=== PATIENT | female | born 1985 | race Caucasian/White ===

== ENCOUNTER 2017-08-25 11:14 | Emergency (ER) | payer MEDICAID ==
[2017-08-25 11:42] VITALS: BP 124/65
[2017-08-25 12:21] LABS: HCG UR QUAL NEGATIVE
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
--- NOTE | 2017-08-25 13:47 | XRAY Report ---
EXAM: RIGHT ELBOW RADIOGRAPHY EXAM DATE: 08/25/2017 01:05 PM. CLINICAL HISTORY: Right elbow injury. COMPARISON: None. TECHNIQUE: 3 views. FINDINGS: Bones: Normal. No fractures or bone lesions. Joints: Normal. No effusion. No subluxation. Soft Tissues: Normal. No soft tissue swelling. IMPRESSION: Normal elbow radiography. [facility] Referring Provider Line: [phone] SITE ID: [id number]
== END 2017-08-25 13:34 | disposition home or self-care (01) ==
LOC: ED 11:14
DX: S50.01XA Contusion of right elbow, initial encounter (principal); W22.8XXA Striking against or struck by other objects, initial encounter; Y93.83 Activity, rough housing and horseplay
CPT/HCPCS: 81025; 99283

== ENCOUNTER 2018-02-07 18:45 | Emergency (ER) | payer MEDICAID ==
[2018-02-07 19:46] LABS: HCG UR QUAL NEGATIVE
--- NOTE | 2018-02-07 20:47 | XRAY Report ---
Reason: injury- slammed on a wood Procedure Date: 02/07/2018 Accession Number: [id number] / [id number] Procedure: XR - Wrist 3 View RT CPT Code: FULL RESULT: EXAM: RIGHT WRIST RADIOGRAPHY EXAM DATE: 02/07/2018 08:23 PM. CLINICAL HISTORY: Injury 3 days ago. Lateral wrist pain and swelling. COMPARISON: None. TECHNIQUE: 3 views. FINDINGS: Bones: Normal. No fractures or bone lesions. Joints: Normal. No subluxations. Soft Tissues: Normal. No soft tissue swelling. IMPRESSION: Normal wrist radiography. [facility]
--- NOTE | 2018-02-07 20:57 | ED Physician Documentation ---
PD HPI UPPER EXT INJURY - Stated complaint Stated Complaint: WRIST PX - Chief complaint Chief Complaint: Trauma Ext - History obtained from History obtained from: Patient - History of Present Illness Location: Right, Wrist Type of injury: Blunt / blow Where injury occurred: Home Timing - onset: Yesterday Timing - details: Abrupt onset, Still present Improved by: Immobilization Worsened by: Moving, Palpating Associated symptoms: Discolored Similar symptoms before: Has not had sx before Recently seen: Not recently seen - Additonal information Additional information: Patient is a 32 year old female presenting to the emergency department for right wrist pain. patient was cleaning out of the house of her grandmother a few days ago and hit her wrist when she was carrying something heavy. patient states that she repeatedly hit and now she had some tingling in her right hand. Patient denies any other trauma. 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, Other HEENT: Tonsil/Adenoidectomy - Present Medications Home Medications: Ambulatory Orders Medication Instructions Recorded Confirmed HYDROcod/ACETAM 5/325 [[place] 5/325] 1 - 2 ea PO Q6H PRN #10 tablet 08/25/17 - Allergies Allergies/Adverse Reactions: Allergies Allergy/AdvReac Type Severity Reaction Status Date / Time Penicillins Allergy Unknown Verified 08/25/17 11:42 - Social History Does the pt smoke?: Yes Smoking Status: Current every day smoker Does the pt drink ETOH?: Yes Does the pt have substance abuse?: No - Immunizations Immunizations are current?: Yes - POLST Patient has POLST: No PD ED PE NORMAL - Vitals Vital signs reviewed: Yes - General General: Alert and oriented X 3 - HEENT HEENT: Atraumatic - Cardiac Cardiac: RRR - Respiratory Respiratory: No respiratory distress - Abdomen Abdomen: Soft PD ED PE EXPANDED - Derm Derm: Bruising (right wrist) - Extremities Extremities: Right wrist (contusion to right medial wrist) Results - Vitals Vitals: Vital Signs - 24 hr 02/07/18 18:57 Temperature 36.4 C L Heart Rate 73 Respiratory 16 Rate Blood Pressure 116/65 O2 Saturation 98 Oxygen O2 Source Room air - Labs Labs: Laboratory Tests 02/07/18 19:35 Ur Specific [place] >=1.030 H Urine HCG, Qual NEGATIVE - Rads (name of study) right wrist Radiology: Final report received (no acute fracture or dislocation) PD MEDICAL DECISION MAKING - ED course Complexity details: reviewed old records, reviewed results, re-evaluated patient , considered differential, d/w patient ED course: Patient was seen and examined at bedside. patient was sent for imaging. when patient returned the results were reviewed. there was no acute fracture or dislocation. Patient required no further work up at this time and was stable for discharge with outpatient follow up. - Sepsis Event Vital Signs: Vital Signs - 24 hr 02/07/18 18:57 Temperature 36.4 C L Heart Rate 73 Respiratory 16 Rate Blood Pressure 116/65 O2 Saturation 98 Oxygen O2 Source Room air Departure - Departure Disposition: 01 Home, Self Care Clinical Impression: Contusion of wrist, right Condition: Good Instructions: ED Contusion Upper Ext Follow-Up: Melissa Bunn MD [Primary Care Provider] - As Needed Comments: Your diagnostics today were within normal limits. there is no acute fracture or dislocation. you should ice your wrist as needed and take motrin or tylenol as needed for pain. You should follow up with your doctor as needed.
[2018-02-07 21:10] VITALS: BP 118/65
== END 2018-02-07 20:00 | disposition home or self-care (01) ==
LOC: ED 18:45
DX: F17.200 Nicotine dependence, unspecified, uncomplicated (principal); S60.211A Contusion of right wrist, initial encounter; W22.03XA Walked into furniture, initial encounter; Y93.E9 Activity, other interior property and clothing maintenance; Y92.009 Unspecified place in unspecified non-institutional (private) residence as the place of occurrence of the external cause
CPT/HCPCS: 81025; 99282; 99283